=== PATIENT | female | born 2000 | race Caucasian/White ===

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

== ENCOUNTER → 2022-04-28 10:00 | Outpatient (BNVA) | payer OTHER, SELFPAY | PROVIDERS: Family Provider Nurse Practitioner; PCP Nurse Practitioner; Visit Provider Family Medicine | DX: Z31.69 Encounter for other general counseling and advice on procreation (principal) | CPT/HCPCS: 84443; 85025 ==

== ENCOUNTER → 2022-05-10 08:52 | Outpatient (BNVA) | payer OTHER, BC, SELFPAY | PROVIDERS: Family Provider Nurse Practitioner; PCP Nurse Practitioner; Visit Provider Nurse Practitioner Family | DX: J02.9 Acute pharyngitis, unspecified (principal); B34.9 Viral infection, unspecified | CPT/HCPCS: 87081; 87880 ==

== ENCOUNTER 2022-09-27 09:29 | Outpatient (CLI) | payer OTHER, BC, MEDICAID, SELFPAY ==
--- NOTE | 2022-09-27 09:30 | US_ITS ---
WS: [id number] TRANSABDOMINAL PELVIC AND TRANSVAGINAL PELVIC ULTRASOUND HISTORY: infertility COMPARISON: None available. Uterus: 7.3 cm x 4.6 cm x 3.7 cm. Normal size anteverted uterus. No fibroid or mass. Endometrium: 1.0 cm. Very mild heterogeneity of the endometrium. There is probably a small amount of fluid retained blood products along the endometrial canal. No mass or increased vascularity. Right ovary: 3.1 cm x 3.0 cm x 2.0 cm. Normal size ovary. There are several small follicles. There is a hypoechoic mass within the ovary measuring 1.7 x 2.3 x 1.0 cm. Probably representing a hemorrhagic follicle or corpus luteum. No increased vascularity. The visualized normal ovary contains normal vas cularity. Left ovary: 4.1 cm x 2.0 cm x 2.9 cm. Small follicles. No mass. Free fluid: No free fluid. US/US pelv w/transvag [id number] IMPRESSION: 1. Unremarkable endometrium. Very small amount of heterogeneity is probably re tained products of menses. No mass. 2. Small hemorrhagic follicle or corpus luteum RIGHT ovary. Maximum diameter o f 2.3 cm.
== END 2022-09-27 09:30 | disposition home or self-care (01) ==
PROVIDERS: PCP Family Medicine; Visit Provider Family Medicine
DX: Z31.69 Encounter for other general counseling and advice on procreation (principal)
CPT/HCPCS: 76830; 76856; 80053; 83002; 84144; 84443; 85025

== ENCOUNTER → 2022-10-14 10:40 | Outpatient (BNVA) | payer OTHER, BC, MEDICAID, SELFPAY | PROVIDERS: PCP Family Medicine; Visit Provider Emergency Medicine | DX: S99.922A Unspecified injury of left foot, initial encounter (principal); S99.912A Unspecified injury of left ankle, initial encounter; X58.XXXA Exposure to other specified factors, initial encounter | CPT/HCPCS: 73610; 73630 ==

== ENCOUNTER 2022-12-06 22:15 | Emergency (ER) | payer OTHER, BC, MEDICAID, SELFPAY ==
[2022-12-06 22:26] VITALS: BP 108/66; PULSE 130; RESP 18; TEMP 38; O2SAT 99; BMI 27.3
--- NOTE | 2022-12-06 22:54 | ED_ITS ---
HPI - Fever General: Chief Complaint: Fever Stated Complaint: flu like symptoms Time Seen by Provider: 12/06/22 22:20 History of Present Illness: Patient is a 21-year-old female comes to the ED with fever, nausea and vomiting. Patient says symptoms started initially approximately 1 week ago. She was having some upper respiratory symptoms of fever, nasal congestion drainage, cough, chills and body aches. Cough is occasionally productive with thick clear sputum. Symptoms have continued and she went and got checked out at [facility] urgent care clinic back on December 02. She was sent home with a prescription for steroid at that time. Patient says she has been taking her steroid as prescribed. Today patient started developing nausea and vomiting and states that it got worse tonight at around 6 PM and she was unable to keep any food or fluids down. Last dose of ibuprofen was at 10 AM this morning. Denies any abdominal pain. Associated symptoms: Reports chills, nasal congestion, nausea and vomiting; Deny abdominal pain, flank pain, chest pain, diarrhea, dysuria or headache(s) Review of Systems Const: Reports: fever(s), chills, body aches and fatigue Eyes: Denies: change in vision or eye discomfort ENMT: Reports: nasal discharge and nasal congestion; Denies: throat pain or odynophagia Card: Denies: chest pain, palpitations, edema, swelling of feet/ankles, dyspnea on exertion or orthopnea Resp: Reports: non-productive cough; Denies: dyspnea or productive cough GI: Reports: nausea and vomiting; Denies: abdominal pain, diarrhea, constipation or hematochezia : Denies: flank pain, dysuria or hematuria Musc: Denies: neck pain, back pain or extremity swelling Skin/Breast: Denies: rash or new lesions Neuro: Denies: headache(s), numbness in extremities or weakness in extremities PFSH ED PFSH: Medical History No chronic problems Surgical History History of wisdom tooth extraction Family History Father Stroke Diabetes Hypertension Denies family history of CAD (coronary artery disease) Chronic kidney disease (CKD) Family history of premature coronary artery disease Social History Smoking and tobacco status: never smoked Second hand smoke exposure: No Alcohol intake: never Substance/Drug Use: never Household members: spouse Marital status: Current occupation: [employer] Physical Exam Const: COMMON NORMALS: patient oriented x3 and alert GENERAL APPEARANCE: cooperative and comfortable HENMT: COMMON NORMALS: normocephalic, external ears normal, EAC's normal and TM's normal bilaterally HEAD & SCALP: normocephalic EXTERNAL EAR: Yes external ears normal EXTERNAL AUDITORY CANAL: EAC's normal TYMPANIC MEMBRANE: TM's normal bilaterally MOUTH: Normal oral and palatal mucosa present THROAT: posterior oropharynx normal and uvula midline Neck/C-Spine: COMMON NORMALS: supple GENERAL: Yes normal visual inspection Resp: COMMON NORMALS: normal respiratory effort, No retractions, No use of accessory muscles and clear to auscultation bilaterally AUSCULTATION: clear to auscultation bilaterally Cardio: COMMON NORMALS: regular rate, regular rhythm, S1 normal heart sound present, S2 normal heart sound present, No gallops present (Cardio), No clicks present (Cardio), No murmurs present (Cardio) and Peripheral pulses 2+ throughout RATE: regular rate RHYTHM: regular rhythm HEART SOUNDS: S1 normal heart sound present and S2 normal heart sound present PERIPHERAL PULSES: Peripheral pulses 2+ throughout GI: COMMON NORMALS: Normal to inspection, nondistended, normoactive bowel sounds present, Soft to palpation, non-tender and no masses PALPATION: Yes Soft to palpation : COMMON NORMALS: Yes no CVA tenderness BLADDER/KIDNEY EXAM: Yes no CVA tenderness Back/Pelvis: COMMON NORMALS: no CVA tenderness Extremity: COMMON NORMALS: normal to inspection Neuro: COMMON NORMALS: patient oriented x3 SENSORIUM/ORIENTATION: Yes alert GAIT: Yes Normal gait present Skin: GENERAL SKIN EXAM: dry skin Course Vital Signs: Vital signs: Vital Signs Temperature 100.4 F H 12/06/22 22:26 Pulse Rate 125 H 12/07/22 01:16 Respiratory Rate 16 12/07/22 01:16 Blood Pressure 97/52 12/07/22 01:16 Pulse Oximetry 97 12/07/22 01:16 Oxygen Delivery Me thod Room Air 12/06/22 22:26 MDM - Fever Medical Decision Making Patient is a 21-year-old female comes to the ED with fever, nausea and vomiting. Patient says symptoms started initially approximately 1 week ago. She was having some upper respiratory symptoms of fever, nasal congestion drainage, cough, chills and body aches. Cough is occasionally productive with thick clear sputum. Symptoms have continued and she went and got checked out at [facility] urgent care clinic back on December 02. She was sent home with a prescription for steroid at that time. Patient says she has been taking her steroid as prescribed. Today patient started developing nausea and vomiting and states that it got worse tonight at around 6 PM and she was unable to keep any food or fluids down. Last dose of ibuprofen was at 10 AM this morning. Denies any abdominal pain. Vitals are stable and patient appears nontoxic in no acute distress or pain. Rest of her exam is benign. Labs are all unremarkable. Influenza, COVID and strep are all negative. Chest x-ray shows no acute findings. Patient was given a liter of IV fluids and nausea meds and her symptoms did improve. She was able to tolerate p.o. fluids here in the ED and was stable for discharge home. She was diagnosed with a viral syndrome and sent home with a prescription for nausea med and antibiotic. Return to ED precautions given. Follow-up with PCP in the next week for reevaluation. Patient understood and agreed with plan. Lab Data I reviewed the patient's lab results. 12/06/22 23:35 12/06/22 23:35 Radiology Impressions Chest X-Ray 12/06/22 23:04 IMPRESSION: No acute findings. Laboratory Results WBC 9.1 10^3/uL (4.0-10.0) 12/06/22: RBC 3.81 10^6/uL (4.1-5.3) L 12/06/22 23:35 Hgb 10.9 g/dL (11.5-15.3) L 12/06/22: Hct 33.9 % (37.0-47.0) L 12/06/22: MCV 89.0 fl (81-99) 12/06/22: MCH 28.6 pg (28.0-34.0) 12/06/22: MCHC 32.2 g/dL (30.0-36.0) 12/06/22 23:35 RDW 12.9 % (12.1-15.1) 12/06/22 23:35 Plt Count 197 10^3/cmm (130-400) 12/06/22 23: MPV 11.7 fL (7.4-10.4) H 12/06/22 23:35 Neut % (Auto) 81.9 % 12/06/22 23: Lymph % (Auto) 8.7 % 12/06/22 23:35 Carlton % (Auto) 8.8 % 12/06/22 23:35 Eos % (Auto) 0.2 % 12/06/22 23:35 Baso % (Auto) 0.1 % 12/06/22: Neut # (Auto) 7.40 10^3/uL (1.8-7.7) 12/06/22 23: Lymph # (Auto) 0.8 10^3/uL (0.8-4.8) 12/06/22 23: Carlton # (Auto) 0.8 10^3/uL (0.2-0.9) 12/06/22 23:35 Eos # (Auto) 0.0 10^3/uL (0.0-0.8) 12/06/22 23:35 Baso # (Auto) 0.0 10^3/uL (0.0-0.1) 12/06/22 23: Nucleated RBC % (auto) 0 % 12/06/22: Nucleated RBCs # 0.0 /100WBC 12/06/22 23: Sodium 138 mmol/L (136-145) 12/06/22 23: Potassium 3.4 mmol/L (3.5-5.1) L 12/06/22 23: Chloride 104 mmol/L (98-107) 12/06/22 23:35 Carbon Dioxide 24 mmol/L (22-29) 12/06/22 23:35 Anion Gap 13.4 (5-19) 12/06/22 23:35 BUN 16 mg/dL (6-20) 12/06/22 23:35 Creatinine 0.5 mg/dL (0.5-0.9) 12/06/22 23: GFR Calculation 155.7 mL/min (90-130) H 12/06/22 23:35 Glucose 100 mg/dL (65-115) 12/06/22 23:35 Calculated Osmolality 287 mOsm/kg (285-295) 12/06/22 23:35 Calcium 8.0 mg/dL (8.5-10.5) L 12/06/22 23:35 Total Bilirubin 0.7 mg/dL (0.15-1.2) 12/06/22 23:35 AST 11 U/L (0-32) 12/06/22:35 ALT 11 U/L (0-33) 12/06/22 23:35 Alkaline Phosphatase 43 U/L (35-105) 12/06/22 23:35 Total Protein 6.2 g/dL (6.6-8.7) L 12/06/22:35 Albumin 3.7 g/dL (3.5-5.2) 12/06/22:35 Globulin 2.5 g/dL (1.3-4.6) 12/06/22 23:35 HCG, Qual Negative (Negative) 12/06/22 23: Urine Color Yellow (Yellow) 12/07/22 00:09 Urine Appearance Clear (CLEAR) 12/07/22 00:09 Urine pH 6 (5-7) 12/07/22 00:09 Ur Specific Grandy 1.015 (1.005-1.030) 12/07/22 00:09 Urine Protein Neg (Negative) 12/07/22 00:09 Urine Glucose (UA) Norm (Normal) 12/07/22 00:09 Urine Ketones Negative (Negative) 12/07/22 00:09 Urine Blood 3+ (Negative) H 12/07/22 00:09 Urine Nitrate Negative (Negative) 12/07/22 00:09 Urine Bilirubin Neg (Negative) 12/07/22 00:09 Urine Urobilinogen Neg mg/dL (Negative) 12/07/22 00:09 Ur Leukocyte Esterase Negative (Negative) 12/07/22 00:09 Urine RBC 5-10 /hpf (0-2) H 12/07/22 00:09 Urine WBC None /hpf (0-5) 12/07/22 00:09 Ur Squamous Epith Cells 5-10 /hpf (0-5) H 12/07/22 00:09 Amorphous Sediment Not Reportable 12/07/22 00:09 Urine Bacteria 1+ /hpf (NONE) H 12/07/22 00:09 Urine Mucus 2+ /hpf 12/07/22 00:09 Coronavirus 229E (PCR) Not detected (NOT DETECT) 12/06/22 23:19 Influenza Type A Ag Negative (Negative) 12/06/22 23:19 Influenza Type B Ag Negative (Negative) 12/06/22 23:19 Parainfluenza 1 (PCR) Not detected (NOT DETECT) 12/07/22 02:01 Parainfluenza 2 (PCR) Not detected (NOT DETECT) 12/07/22 02:01 Parainfluenza 3 (PCR) Detected (NOT DETECT) A 12/07/22 02:01 Parainfluenza 4 (PCR) Not detected (NOT DETECT) 12/07/22 02:01 SARS-CoV-2 (PCR) Not detected (NOT DETECT) 12/06/22 23:19 Group A Strep Rapid Negative (Negative) 12/07/22 00:17 Discharge Plan Discharge Patient Disposition: Home Clinical Impression: Viral syndrome Condition: Stable Prescriptions: New azithromycin 250 mg tablet See Rx Instructions .ROUTE .COMPLEX Qty: 6 0RF Rx Instructions: For 250 mg dose pack: take 500 mg today (day 1), then 250 mg for 4 days (days 2-5) ondansetron 4 mg tablet,disintegrating 4 mg PO Q8H PRN (Reason: nausea and vomiting) Qty: 20 0RF No Action Classic 28 mg iron- 800 mcg tablet 1 tab PO DAILY prednisone 20 mg tablet 20 mg PO DAILY 5 Days Qty: 5 0RF Discharge Orders: Discharge ED (Routine); Ordered 12/07/22 Ordered By: Tyrone Haddad Referrals: Almita Stewart MD [Primary Care Provider] - Discharge Diet: Advance as tolerated, Regular and Clear Liquid Discharge Activity: Increase activity as tolerated Patient Instructions: Viral Syndrome - Adult Activity Restrictions/Additional Instructions: Follow-up with medical provider as directed in the next 5 to 7 days for reevaluation. Drink plenty of fluids and stay hydrated. Take [id number] Tylenol or Motrin for any fevers. Take medications as prescribed. Return to the ER or your medical provider if condition worsens. Please read and understand discharge instructions. Thank you for choosing [facility] for your healthcare needs today. Please realize this is an emergency room and that we are providing you with a medical screening exam and this may not be complete and all inclusive of all the testing and or work up that you may need to determine your ailment or severity of your illness. It is very important that you follow up as instructed or that you return to the Emergency Department should you have concerns or if your condition changes or worsens in any way. Coding Level of Care Code ED [employer] for Jesse Hernandez
--- NOTE | 2022-12-06 23:04 | XRR_ITS ---
PROCEDURE INFORMATION: Exam: XR Chest Exam date and time: 12/06/2022 11:19 PM Age: 21 years old Clinical indication: Cough and fever; Additional info: Fever and cough TECHNIQUE: Imaging protocol: Radiologic exam of the chest. Views: 1 view. COMPARISON: CR XR shoulder RT min 2V* [id number] 10/07/2019 5:07 PM FINDINGS: Lungs: Unremarkable. No consolidation. Pleural spaces: Unremarkable. No pleural effusion. No pneumothorax. Heart/Mediastinum: Unremarkable. No cardiomegaly. Bones/joints: Unremarkable. XR/XR chest 1V portable [id number] IMPRESSION: No acute findings.
[2022-12-06] MEDS: sodium chloride 0.9% 1,000 ML 999 ML IV (23:13)
[2022-12-06] MEDS: ondansetron 2 mg/ML SDV 2 mL 4 MG IVP (23:13)
[2022-12-06] MEDS: ketorolac 30 mg/mL INJ IVP (23:17)
[2022-12-06 23:48] LABS: Basophils % 0.1 %; Eosinophils % 0.2 %; Hematocrit 33.9 % (37.0-47.0); Hemoglobin 10.9 g/dL (11.5-15.3); Lymphocytes # 0.8 10^3/uL (0.8-4.8); Lymphocytes % 8.7 %; Mean Corpuscular HGB Conc 32.2 g/dL (30.0-36.0); Mean Corpuscular Hemoglobin 28.6 pg (28.0-34.0); Mean Platelet Volume 11.7 fL (7.4-10.4); Monocytes # 0.8 10^3/uL (0.2-0.9); Monocytes % 8.8 %; Neutrophils % 81.9 %; Nucleated Red Blood Cells % 0 %; Platelet Count 197 10^3/cmm (130-400); Red Blood Count 3.81 10^6/uL (4.1-5.3); Red Cell Distribution Width 12.9 % (12.1-15.1); White Blood Count 9.1 10^3/uL (4.0-10.0)
[2022-12-06 23:57] LABS: HCG, Serum Qual Negative (Negative)
[2022-12-07 00:01] LABS: Alanine Aminotransferase 11 U/L (0-33); Albumin Level 3.7 g/dL (3.5-5.2); Alkaline Phosphatase 43 U/L (35-105); Anion Gap 13.4 (5-19); Aspartate Amino Transferase 11 U/L (0-32); Blood Urea Nitrogen 16 mg/dL (6-20); Carbon Dioxide 24 mmol/L (22-29); Chloride 104 mmol/L (98-107); Globulin 2.5 g/dL (1.3-4.6); Glomerular Filtration Rate 155.7 mL/min (90-130); Glucose 100 mg/dL (65-115); Osmolality Calculated 287 mOsm/kg (285-295); Potassium 3.4 mmol/L (3.5-5.1); Sodium 138 mmol/L (136-145); Total Bilirubin 0.7 mg/dL (0.15-1.2); Total Protein 6.2 g/dL (6.6-8.7)
[2022-12-07 00:10] LABS: Influenza A by IFA Negative (Negative); Influenza B by IFA Negative (Negative)
[2022-12-07 00:25] LABS: Rapid Strep A Test Negative (Negative)
[2022-12-07 00:33] LABS: Add Urine Microscopic? YES; Bilirubin Urine Neg (Negative); Blood Urine 3+ (Negative); Glucose Urine UA Norm (Normal); Ketones Urine Negative (Negative); Leukocyte Esterase Urine Negative (Negative); Nitrate Urine Negative (Negative); Protein Urine Neg (Negative); Specific Gravity, Urine 1.015 (1.005-1.030); Urine Appearance Clear (CLEAR); Urine Color Yellow (Yellow); Urobilinogen Urine Neg (Negative); pH Urine 6 (5-7)
[2022-12-07 00:34] LABS: Add Urine Culture? No; Bacteria Urine 1+ /hpf; Mucus Urine 2+ /hpf
[2022-12-07] MEDS: metoclopramide 5 mg/mL SDV 2 mL 10 MG IVP (00:44)
[2022-12-07 00:47] VITALS: BP 93/56; PULSE 114; RESP 16; O2SAT 96
[2022-12-07] MEDS: acetaminophen 325 mg Tablet 650 MG PO (01:11)
[2022-12-07 01:16] VITALS: BP 97/52; PULSE 125; RESP 16; O2SAT 97
[2022-12-07 01:32] LABS: Adenovirus Not Detected (NOT DETECT); Chlamydia Pneumoniae Not Detected (NOT DETECT); Coronavirus 229E,HKU1,NL63,OC4 Not Detected (NOT DETECT); Human Metapneumovirus Not Detected (NOT DETECT); Human Rhinovirus/Enterovirus Not Detected (NOT DETECT); Influenza A Not Detected (NOT DETECT); Influenza A H1 Not Detected (NOT DETECT); Influenza A H1-2009 Not Detected (NOT DETECT); Influenza A H3 Not Detected (NOT DETECT); Influenza B Not Detected (NOT DETECT); Mycoplasma Pneumoniae Not Detected (NOT DETECT); Parainfluenza Virus Type 1 Not Detected (NOT DETECT); Parainfluenza Virus Type 2 Not Detected (NOT DETECT); Parainfluenza Virus Type 3 Detected (NOT DETECT); Parainfluenza Virus Type 4 Not Detected (NOT DETECT); Respiratory Syncytial Virus A Not Detected (NOT DETECT); Respiratory Syncytial Virus B Not Detected (NOT DETECT); SARS-COV-2 Not Detected (NOT DETECT)
[2022-12-07 02:01] LABS: Parainfluenza Virus Type 1 Not Detected (NOT DETECT); Parainfluenza Virus Type 2 Not Detected (NOT DETECT); Parainfluenza Virus Type 3 Detected (NOT DETECT); Parainfluenza Virus Type 4 Not Detected (NOT DETECT); Results from Genmark
== END 2022-12-07 01:19 | disposition home or self-care (01) ==
PROVIDERS: Emergency Provider Physician Assistant; PCP Family Medicine
DX: B34.9 Viral infection, unspecified (principal); Z20.822 Contact with and (suspected) exposure to COVID-19
CPT/HCPCS: 36415; 71045; 80053; 81001; 84703; 85025; 87081; 87631; 87635; 87804; 87880; 96361; 96374; 96375; 99284; J1885; J2405; J2765; J7030

== ENCOUNTER → 2023-03-28 14:28 | Outpatient (BNVA) | payer OTHER, BC, MEDICAID, SELFPAY | PROVIDERS: PCP Family Medicine; Visit Provider Nurse Practitioner Family | DX: Z31.69 Encounter for other general counseling and advice on procreation (principal) | CPT/HCPCS: 82670; 83002; 84144; 84146; 84443 ==

== ENCOUNTER 2023-03-31 14:20 | Outpatient (CLI) | payer OTHER, BC, MEDICAID, SELFPAY ==
--- NOTE | 2023-03-31 14:33 | FL_ITS ---
WS: [id number] HYSTEROSALPINGOGRAM PERFORMED UNDER FLUOROSCOPY HISTORY: N97.9 - Female infertility, unspecified. FLUOROSCOPY TIME: 1min [id number] minutes. # of spot films: 7. Cannulization of the cervix performed by Dr. Maria. Contrast is injected by Dr. Maria. There is good fill ing of the uterine cavity. There is almost immediate spillage of the LEFT fallopian tube. LEFT fallop estefania tube appears normal. No significant spillage of the RIGHT fallopian tube and no distention of the tube. IMPRESSION: 1. Obstructed RIGHT fallopian tube. 2. Normal LEFT fallopian tube.
== END 2023-03-31 14:21 | disposition home or self-care (01) ==
LOC: RAD 14:21
PROVIDERS: PCP Family Medicine; Visit Provider Obstetrics & Gynecology
DX: N97.1 Female infertility of tubal origin (principal)
CPT/HCPCS: 74740

== ENCOUNTER → 2023-07-19 13:55 | Outpatient (BNVA) | payer OTHER, BC, MEDICAID, SELFPAY | PROVIDERS: PCP Family Medicine; Visit Provider Nurse Practitioner Family | DX: R50.9 Fever, unspecified (principal); J02.9 Acute pharyngitis, unspecified | CPT/HCPCS: 87071; 87400; 87880 ==

== ENCOUNTER → 2023-09-11 08:31 | Outpatient (BNVA) | payer OTHER, BC, MEDICAID, SELFPAY | PROVIDERS: PCP Family Medicine; Visit Provider Nurse Practitioner Family | DX: Z20.822 Contact with and (suspected) exposure to COVID-19 (principal); J02.9 Acute pharyngitis, unspecified; R68.89 Other general symptoms and signs | CPT/HCPCS: 87426; 87804; 87880 ==

== ENCOUNTER 2023-09-12 09:58 | Outpatient (CLI) | payer OTHER, BC, MEDICAID, SELFPAY | END 2023-09-12 09:59 | disposition home or self-care (01) | LOC: LAB 10:00 | PROVIDERS: PCP Family Medicine; Visit Provider Nurse Practitioner Family | DX: N93.9 Abnormal uterine and vaginal bleeding, unspecified (principal) | CPT/HCPCS: 36415; 84702 ==